=== PATIENT | female | born 1975 | race Two or more races ===

== ENCOUNTER 2022-09-27 08:55 | Day surgery (SDC) | payer OTHER ==
[~2022-09-27] VITALS: Ht 12.7 cm; Wt 59.0 kg
[~2022-09-27 08:55] MED LIST: TENORMIN25 MG
== END 2022-09-27 21:35 | disposition home or self-care (01) ==
LOC: CIR.AMB 08:55
PROVIDERS: ATTEND Obstetrics & Gynecology
DX: N84.0 Polyp of corpus uteri (principal); Z20.822 Contact with and (suspected) exposure to COVID-19; I10 Essential (primary) hypertension; K21.9 Gastro-esophageal reflux disease without esophagitis

== ENCOUNTER 2025-01-21 08:00 | Inpatient (IN) | payer OTHER ==
[~2025-01-21] VITALS: Ht 162.6 cm; Wt 58.1 kg
[~2025-01-21 08:00] MED LIST changes: -TENORMIN25 MG; +TENORMIN25 MG PO
[2025-01-21] MEDS ORDERED: PROZAC10 MG PO (09:06)
[2025-01-21] MEDS ORDERED: MULTIPLE VITAM1 EAC2 PO (09:07)
[2025-01-21] MEDS ORDERED: ROSUVASTATIN CA10 MG PO (09:07)
[2025-01-21 09:08] VITALS: BP 93/60
[2025-01-21 09:14] VITALS: BP 118/78
[2025-01-21 09:41] LABS: HEMATOCRIT 39.2 % (36.0-45.00); HEMOGLOBIN 13.2 g/dL (12.0-15.00); MEAN CORPUSCULAR HEMOGLOBIN 30.9 pg (27.00-32.0); MEAN CORPUSCULAR HGB CONC 33.6 g/dl (32.0-36.0); PLATELET COUNT 192 K/uL (150-450); RED BLOOD COUNT 4.26 M/uL (4.00-6.00); RED CELL DISTRIBUTION WIDTH 13.6 % (11.5-14.5)
[2025-01-21 09:41] LABS: PH,URINE 5.5 (5.0-8.0); URINE APPEARANCE Clear; URINE BILIRRUBIN Negative (NEGATIVE); URINE BLOOD Negative; URINE COLOR Yellow; URINE GLUCOSE Negative (NEGATIVE); URINE KETONE 15 (NEGATIVE); URINE LEUKOCYTE Negative; URINE NITRATE Negative; URINE PROTEIN Negative (NEGATIVE); URINE UROBILINOGEN 0.2 E.U./dl
[2025-01-21 09:44] LABS: URINE BACTERIA 431.9 uL (0.0-1933); URINE RBC 6.6 uL (0.0-20.8); URINE WBC 4.1 uL (0.0-23.2)
[2025-01-21 10:01] LABS: INR 0.97; PROTHROMBIN TIME 10.6 SECONDS (9.0-11.5)
[2025-01-21 10:47] LABS: ALBUMIN 3.9 gm/dL (3.4-5.0); BILIRUBIN TOTAL 0.53 mg/dL (0.3-1.2); CALCIUM 9.2 mg/dL (8.5-10.1); CREATININE SERUM 0.69 mg/dL (0.55-1.02); GFR 91.19; GLOBULINA 2.9 G/DL (2.4-3.5); POTASSIUM 4.38 mEq/L (3.5-5.1); TOTAL PROTEIN 6.8 gm/dL (6.4-8.2)
[2025-01-28] MEDS ORDERED: POVIDONE-IODINE 118 ML BOTT TOP ONE (08:30)
[2025-01-28] MEDS ORDERED: CEFAZOLIN SODIUM 1,000 MG VIAL IV ONE (08:45)
[2025-01-28] MEDS ORDERED: MORPHINE SULFATE 4 MG/ML CARTRIDGE IV PRN (10:00)
[2025-01-28] MEDS ORDERED: OxyCODONE HCL/APAP UD (PERCOCET) PO PRN (10:00)
[2025-01-28] MEDS ORDERED: MORPHINE SULFATE 4 MG/ML VIAL IV ONE ×2 (10:00→11:20)
[2025-01-28] MEDS ORDERED: KETOROLAC TROMETHAMINE 30 MG VIAL IV SCH (10:00)
[2025-01-28] MEDS ORDERED: RINGERS SOLUTION,LACTATED 1,000 ML IV SCH (10:00)
[2025-01-28 11:45] VITALS: BP 93/60
[2025-01-28] MEDS ORDERED: DEXAMETHASONE SODIUM PHOSPHATE 4 MG/ML VIAL IV ONE (12:00)
[2025-01-28 14:06] VITALS: BP 103/66
[2025-01-28 16:28] VITALS: BP 96/61
[2025-01-29 00:40] VITALS: BP 94/60
[2025-01-29 06:42] LABS: HEMATOCRIT 30.3 % (36.0-45.00); HEMOGLOBIN 10.6 g/dL (12.0-15.00); MEAN CELL VOLUME 92.1 fL (80.00-100.00); MEAN CORPUSCULAR HEMOGLOBIN 32.2 pg (27.00-32.0); PLATELET COUNT 133 K/uL (150-450); RED BLOOD COUNT 3.29 M/uL (4.00-6.00); RED CELL DISTRIBUTION WIDTH 13.6 % (11.5-14.5)
[2025-01-29 08:59] VITALS: BP 100/62
[2025-01-29] MEDS ORDERED: OxyCODONE HCL/APAP UD (PERCOCET) PO PRN (13:15)
[2025-01-29 15:55] VITALS: BP 99/65
[2025-01-29] MEDS ORDERED: IBUprofen 800 MG TABLET PO SCH (17:00)
== END 2025-01-29 16:51 | disposition home or self-care (01) | DRG 743 ==
LOC: O/R 01-28 05:09 → OB/GYN 01-28 05:09
PROVIDERS: ADMIT Obstetrics & Gynecology; ATTEND Obstetrics & Gynecology
PROC: 0UT70ZZ Resection of Bilateral Fallopian Tubes, Open Approach (ICD-10-PCS; 2025-01-28)
PROC: 0UT90ZZ Resection of Uterus, Open Approach (ICD-10-PCS; principal; 2025-01-28 20:30)
DX: D25.2 Subserosal leiomyoma of uterus (principal); Z90.710 Acquired absence of both cervix and uterus; N80.03 Adenomyosis of the uterus; N80.203 Endometriosis of bilateral fallopian tubes, unspecified depth